=== PATIENT | male | born 1970 | race Caucasian/White ===

== ENCOUNTER 2018-08-18 03:53 | Emergency (ER) | payer OTHER ==
[~2018-08-18] VITALS: Ht 172.7 cm; Wt 73.0 kg
[2018-08-18] MEDS ORDERED: SODIUM CHLORIDE 0.9% 1,000 ML IV ONE ×2 (04:10→05:45)
[2018-08-18 04:33] LABS: BASOPHILS % 0.3 % (0.0-2.0); EOSINOPHILS % 0.1 % (0.0-5.0); HEMATOCRIT. 40.1 % (42.0-52.0); HEMOGLOBIN. 13.9 g/dL (14.0-18.0); LYMPHOCYTES % 7.3 % (20.0-50.0); MEAN CORPUSCULAR HEMOGLOBIN 31.2 pg (28.0-32.0); MEAN CORPUSCULAR VOLUME 90.2 fL (80.0-94.0); MEAN PLATELET VOLUME 8.4 fl (7.4-10.4); MONOCYTES % 6.4 % (2.0-8.0); NEUTROPHILS % 85.9 % (40.0-76.0); PLATELET 181 x1000/uL (130-400); RED BLOOD CELL COUNT 4.45 mill/uL (4.7-6.1); RED CELL DISTRIBUTION WIDTH 13.1 % (11.6-14.6)
[2018-08-18 04:37] LABS: CHLORIDE 105 mEq/L (98-107)
[2018-08-18 06:19] VITALS: BP 106/67
[2018-08-18] MEDS ORDERED: ACETAMINOPHEN 500MG TABLET PO ONE (06:30)
== END 2018-08-18 07:25 | disposition home or self-care (01) ==
LOC: ER 03:53 → EDBD 03:53 → ER 07:25
DX: R55 Syncope and collapse (principal); R19.7 Diarrhea, unspecified; I95.9 Hypotension, unspecified; E86.0 Dehydration; R05 Cough
CPT/HCPCS: 71045; 80053; 83605; 85025; 93005; 96360; 96361; 99284; J7030; Z7610